=== PATIENT | male | born 1945 | race Caucasian/White ===

== ENCOUNTER 2016-10-23 16:27 | Emergency (ER) | payer MEDICARE, BC ==
--- NOTE | 2016-11-08 18:03 | ER ---
ADMIT: 10/23/2016 RM/LOC: ER [facility] MR#: [id number] [address] [facility] [address] [place], [place] [id number] LISA MINOR Ally [address] [place] [address] Emergency Room Report SEX: M AGE: 70 : 1945 DATE: 10/23/2016 ADDENDUM: CHIEF COMPLAINT: Chills and sweating. HISTORY OF PRESENT ILLNESS: This is a 70-year-old male who does have a history of having anxiety at times. This time, he had the chills and sweating. He did take an Ativan, which helped. was concerned about his heart, so brought him to the emergency room. PAST MEDICAL HISTORY: Hypothyroid, hypertension, and sepsis previously from prostate. ALLERGIES: BACTRIM AND SEPTRA. MEDICATIONS: Please see med list, which does include metoprolol 25 mg daily. SOCIAL HISTORY: Denies any tobacco, drug, or alcohol use. FAMILY HISTORY: Noncontributory. REVIEW OF SYSTEMS: CONSTITUTIONAL: He denies any fevers, chills, or sweats. He does have just a little bit of chills and sweating earlier, but his symptoms are completely resolved at this time. CARDIOVASCULAR/RESPIRATORY: He actually denies any chest pain. Denies any shortness of breath. GASTROINTESTINAL/GENITOURINARY: Denies any nausea, vomiting, or diarrhea. All systems otherwise negative. PHYSICAL EXAMINATION: VITAL SIGNS: Blood pressure is 142/79, pulse is 58, respirations 16, temperature is 97.5 tympanic, and saturation of oxygen is 99% on room air. GENERAL APPEARANCE: He is really actually in no acute distress and alert. HEENT: Pharynx is moist. No tonsillar swelling or exudate. NECK: Supple. HEART: Bradycardic. LUNGS: CTA bilateral. No wheezes, rales, or rhonchi. ABDOMEN: Soft, nontender. No distention. SKIN: Normal color, warm, and dry. No rashes noted. ADMIT: 10/23/2016 RM/LOC: ER [facility] MR#: [id number] [address] [id number] LISA MINOR [address] [place] [address] Emergency Room Report SEX: M AGE: 70 : 1945 COURSE IN THE EMERGENCY ROOM: CBC was done is normal with a white count of 5.8, hemoglobin of 14.5, and platelets 152. Chemistries normal except for urea of 32, glucose 107. GFR low at 62. CK was normal. MB was 4.1. Troponin was normal. TSH and T4 are normal. EKG showed sinus lisa over-read by Dr. Marquez. The patient still felt fine at discharge. I reassured them that this does not seem cardiac at this time. CLINICAL IMPRESSION: Bradycardia probably secondary to the metoprolol. DISPOSITION: He felt fine going home. feels fine taking him home and told to follow up with primary care physician as scheduled. MARY Msea / Jhony Marquez MD / sylvia JOB #: [id number] CC: Jhony Marquez MD, Attending Physician Saroj Sotomayor MD, Family Physician
== END 2016-10-23 19:10 | disposition home or self-care (01) ==
LOC: ER 16:27
DX: R00.1 Bradycardia, unspecified (principal)